=== PATIENT | female | born 2000 | race Caucasian/White ===

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

== ENCOUNTER 2024-12-18 15:36 | Inpatient (IN) | payer OTHER ==
[2024-12-18] MEDS ORDERED: Misoprostol 25 MCG (1/4 of 100 MCG) Tab VAG PRN (17:35)
[2024-12-18] MEDS ORDERED: Nalbuphine 10 MG/1 ML Vial IVPUSH PRN (17:35)
[2024-12-18] MEDS ORDERED: Ondansetron 4 MG/2 ML SDV IVPUSH PRN (17:35)
[2024-12-18] MEDS ORDERED: Sodium Chloride 0.9% 10 ML Syringe FLUSH PRN (17:35)
[2024-12-18] MEDS ORDERED: Oxytocin/0.9 % Sodium Chloride 30 UNIT/500 ML BAG IV SCH ×2 (17:45)
[2024-12-18] MEDS: Misoprostol 25 MCG (1/4 of 100 MCG) Tab VAG ONE (17:58)
[2024-12-18 18:02] LABS: BASOPHILS ABSOLUTE AUTO 0.0 K/mm3 (0.0-0.2); BASOPHILS PERCENT AUTO 0.3 % (0.0-1.0); EOSINOPHILS ABSOLUTE AUTO 0.0 K/mm3 (0.0-0.4); EOSINOPHILS PERCENT AUTO 0.3 % (0.0-6.0); IMMATURE GRAN ABSOLUTE AUTO 0.07 K/mm3 (0.00-0.05); IMMATURE GRAN PERCENT AUTO 0.5 % (0.0-0.4); LYMPHOCYTES ABSOLUTE AUTO 3.2 K/mm3 (1.0-4.8); LYMPHOCYTES PERCENT AUTO 22.4 % (24.0-44.0); MEAN PLATELET VOLUME 10.9 fl (9.4-12.3); MONOCYTES ABSOLUTE AUTO 1.1 K/mm3 (0.0-0.8); MONOCYTES PERCENT AUTO 7.4 % (0.0-8.0); NEUTROPHILS ABSOLUTE AUTO 9.9 K/mm3 (1.8-7.7); NEUTROPHILS PERCENT AUTO 69.1 % (41.0-71.0); NRBC ABSOLUTE 0.00 (0.00-0.02); NRBC PERCENT 0.0 % (0.0-0.2); PLATELET COUNT,PLT 201 K/mm3 (150-400); RED BLOOD CELL COUNT 4.63 M/mm3 (4.10-5.30); WHITE BLOOD CELL COUNT,WBC 14.37 K/mm3 (3.9-11.3)
[2024-12-18] MEDS: Lactated Ringers 1,000 ML IV SCH (18:10)
[2024-12-18] MEDS: Penicillin G Potassium 5 MILLUNITS in Sodium Chloride 0.9% 100 ML IV SCH (18:12)
[2024-12-18] MEDS ORDERED: ePHEDrine 50 MG/ML SDV IVPUSH PRN (21:00)
[2024-12-18] MEDS ORDERED: diphenhydrAMINE 50 MG/ML SDV IVPUSH PRN (21:00)
[2024-12-18] MEDS: Bupivacaine/fentaNYL/NS 100 ML Bag EPIDUR PRN (21:07)
[2024-12-18] MEDS ORDERED: Penicillin G Potassium 2.5 MILLUNITS in Sodium Chloride 0.9% 100 ML IV SCH (22:00)
[2024-12-18] MEDS: Penicillin G Potassium 2.5 MILLUNITS in Sodium Chloride 0.9% 100 ML IV SCH (22:30)
[2024-12-19] MEDS ORDERED: Lactated Ringers 1,000 ML IV SCH (00:45)
[2024-12-19] MEDS ORDERED: Ropivacaine 0.5% 5 MG/ML 30 ML SDV ONE (00:48)
[2024-12-19] MEDS ORDERED: ePHEDrine 50 MG/ML SDV ONE (00:48)
[2024-12-19] MEDS: Citric Acid/Sodium Citrate Solution 30 ML Cup PO ONE (00:50)
[2024-12-19] MEDS ORDERED: Morphine PF 10 MG/10 ML SDV ONE (00:52)
[2024-12-19] MEDS ORDERED: Lactated Ringers 1,000 ML ONE (01:26)
[2024-12-19] MEDS ORDERED: Bupivacaine 0.75%/D5W 2 ML Amp ONE (01:31)
[2024-12-19] MEDS ORDERED: Ketorolac 30 MG/ML SDV ONE (01:51)
[2024-12-19] MEDS ORDERED: Phenylephrine 1% 10 MG/ML SDV ONE (01:56)
[2024-12-19] MEDS ORDERED: diphenhydrAMINE 50 MG/ML SDV IVPUSH PRN ×2 (02:35→02:53)
[2024-12-19] MEDS ORDERED: fentaNYL 100 MCG/2 ML SDV IVPUSH PRN (02:35)
[2024-12-19] MEDS ORDERED: Ondansetron 4 MG/2 ML SDV IVPUSH PRN (02:35)
[2024-12-19] MEDS ORDERED: Naloxone 0.4 MG/ML SDV IVPUSH PRN (02:53)
[2024-12-19] MEDS ORDERED: ePHEDrine 50 MG/ML SDV IVPUSH PRN (02:53)
[2024-12-19] MEDS: Sodium Chloride 0.9% 10 ML Syringe FLUSH SCH (08:34)
[2024-12-20 05:28] LABS: MEAN PLATELET VOLUME 10.6 fl (9.4-12.3); NRBC ABSOLUTE 0.00 (0.00-0.02); NRBC PERCENT 0.0 % (0.0-0.2); PLATELET COUNT,PLT 147 K/mm3 (150-400); RED BLOOD CELL COUNT 3.63 M/mm3 (4.10-5.30); WHITE BLOOD CELL COUNT,WBC 11.80 K/mm3 (3.9-11.3)
== END 2024-12-21 11:00 | disposition home or self-care (01) | DRG 787 ==
LOC: JD.OBCHECK 15:36 → JD.OB 15:37 → JD.OBCHECK 17:35 → OBSVTOIN 12-19 01:54 → JD.OB 12-19 01:55
PROVIDERS: ADMIT Obstetrics & Gynecology; ATTEND Obstetrics & Gynecology
PROC: 4A1HXCZ Monitoring of Products of Conception, Cardiac Rate, External Approach (ICD-10-PCS; 2024-12-19)
PROC: 3E0DXGC Introduction of Other Therapeutic Substance into Mouth and Pharynx, External Approach (ICD-10-PCS; 2024-12-19)
PROC: 10D00Z1 Extraction of Products of Conception, Low, Open Approach (ICD-10-PCS; principal; 2024-12-19 01:05)
DX: O42.02 Full-term premature rupture of membranes, onset of labor within 24 hours of rupture (principal); O99.354 Diseases of the nervous system complicating childbirth; O76 Abnormality in fetal heart rate and rhythm complicating labor and delivery; Z3A.39 39 weeks gestation of pregnancy; Z37.0 Single live birth; O99.824 Streptococcus B carrier state complicating childbirth; G43.909 Migraine, unspecified, not intractable, without status migrainosus
CPT/HCPCS: 01967; 01968; 36415; 51702; 59025; 84112; 85025; 85027; 86592; 86850; 86900; 86901; 94760; A9270-GY; J0690; J1885; J2274; J2371; J2540; J2765; J2795; J3490; J7120; J7121; J7999